=== PATIENT | male | born 1960 | race American Indian/Alaskan Native ===

== ENCOUNTER 2021-09-14 06:23 | Day surgery (SDC) | payer OTHER ==
[2021-09-08 11:12] LABS: Hematocrit 44.6 % (35.5-45.6); Hemoglobin 15.4 gm/dl (11.8-15.2); Mean Corpuscular HGB Conc 35 % (32-34); Mean Corpuscular Volume 89 fl (84-94); Red Cell Distribution Width 13.5 % (13.2-15.2)
[2021-09-08 11:28] LABS: Platelet Count 233 K/mm3 (140-440)
[2021-09-08 11:34] LABS: Alanine Aminotransferase 14 units/L (7-56); Albumin 4.7 g/dL (3.9-5); BUN/Creatinine Ratio 9; Blood Urea Nitrogen 9 mg/dL (9-20); Calcium 9.8 mg/dL (8.4-10.2); Hemolysis Index 7
[2021-09-14] MEDS ORDERED: BACTERIOSTATIC SODIUM CHLORIDE 0.9% 30 ML VIAL INFILTRATI ONE (06:51)
[2021-09-14] MEDS ORDERED: LACTATED RINGERS 1,000 ML IV SCH (07:00)
--- NOTE | 2021-09-14 07:45 | Anesthesia Consultation ---
Anesthesia Consult and Med Hx Date of service: 09/14/21 - Airway Anesthetic Teeth Evaluation: Good (some missing) ROM Head & Neck: Adequate Mental/Hyoid Distance: Adequate Mallampati Class: Class II Intubation Access Assessment: Probably Good - Pre-Operative Health Status ASA Pre-Surgery Classification: ASA3 Proposed Anesthetic Plan: General - Pulmonary Hx Smoking: Yes (1 PPD X 40 YRS) COPD: Yes (PRN INHALER) Hx Sleep Apnea: Yes (DX SLEEP APNEA WITH CPAP USE) - Cardiovascular System Hx Hypertension: Yes (X 11 YRS) Hx Heart Murmur: Yes (CAUSES NO PROBLEMS) - Central Nervous System Hx Back Pain: Yes (hip arthritis, uses cane) Hx Psychiatric Problems: Yes (PTSD) - Endocrine Hx Renal Disease: No (elevated PSA) Hx Non-Insulin Dependent Diabetes: Yes - Hematic Hx Anemia: No - Other Systems Hx Alcohol Use: Yes (HX ABUSE- DRY X 20 YRS) Hx Cancer: No
--- NOTE | 2021-09-14 07:45 | Anesthesia Day of Surgery ---
Anesthesia Day of Surgery - Day of Surgery Patient Examined: Yes Patient H&P Reviewed: Yes Patient is NPO: Yes
[2021-09-14] MEDS ORDERED: MIDAZOLAM 2 MG/2 ML INJ IV NR (08:00)
[2021-09-14] MEDS ORDERED: FAMOTIDINE 20 MG/2 ML INJ IV NR (08:00)
[2021-09-14] MEDS ORDERED: ceFAZolin/STERILE WATER 2 GM/20 ML SYRINGE IV NR (08:00)
[2021-09-14] MEDS ORDERED: propofoL 200 MG/20 ML VIAL IV ONE (08:39)
[2021-09-14] MEDS ORDERED: HYDROmorphone 1 MG/1 ML INJ ONE (08:39)
[2021-09-14] MEDS ORDERED: LIDOCAINE MPF (2%) 20 MG/1 ML VIAL 5 ML ONE (08:39)
[2021-09-14] MEDS ORDERED: ONDANSETRON 4 MG/2 ML INJ ONE (09:24)
[2021-09-14 11:00] VITALS: BP 128/79
--- NOTE | 2021-09-14 11:04 | Ultrasound Report ---
Transrectal Ultrasound HISTORY: ELEVATED PSA. TECHNIQUE: Grayscale and color imaging performed. COMPARISON: None IMPRESSION: Prostate volume is 48.5 mL. The prostate is heterogeneous in appearance. Please refer to operative note for complete details. Signer Name: Wilber Yarbrough MD Signed: 09/14/2021 10:58 AM Workstation Name: [id number]
--- NOTE | 2021-09-14 11:46 | Operative Report ---
DATE OF SURGERY: 09/14/2021 TIME OF PROCEDURE: At approximately 9:15 a.m. PREOPERATIVE DIAGNOSES: 1. Elevated PSA with acute rise. 2. Family history of prostate and breast cancer. POSTOPERATIVE DIAGNOSES: 1. Elevated PSA with acute rise. 2. Family history of prostate and breast cancer. OPERATIVE PROCEDURE: Transrectal ultrasound of the prostate with transrectal ultrasound-guided prostate needle biopsies. ATTENDING: Noam Rollins MD CHANNEL ACCOUNT MANAGER: None. ANESTHESIA: General. ESTIMATED BLOOD LOSS: 10 mL. DRAINS: None. COMPLICATIONS: None. SPECIMENS: Prostate needle biopsies. INDICATIONS FOR PROCEDURE: The patient is a 61-year-old man with a strong family history of prostate cancer and an acute rise in his PSA. He presents today for prostate needle biopsy. DESCRIPTION OF PROCEDURE IN DETAIL: After induction of suitable anesthesia and proper positioning and preparation in the dorsal lithotomy position, an ultrasound probe was placed per rectum. Ultrasound of the prostate was performed. The patient had transitional zone nodularity, especially on the right. His prostate volume was 48.5 grams. Using ultrasound guidance, sequential, sextant biopsies were performed in the usual fashion. The probe was removed at the completion of the procedure. The patient tolerated the procedure well. All specimens were adequate. The patient was then awakened from anesthesia and transported to the recovery room in stable condition. He tolerated the procedure well. He will return in approximately 7-10 days for pathology review. TID: [id number] RECEIPT: [id number] SAMMI/YECENIA
--- NOTE | 2021-09-14 14:20 | Post Anesthesia Evaluation ---
- Post Anesthesia Evaluation Patient Participated: Yes Airway Patent: Yes Stable Respiratory Function: Yes Nausea/Vomiting: No Temp > 96.8F: Yes Pain Manageable: Yes Adequeate Hydration: Yes Anesthesia Complications: No Block Receding Appropriately: Not Applicable Patient on Ventilator: No
== END 2021-09-14 11:40 | disposition home or self-care (01) ==
LOC: OR 06:23
PROVIDERS: ATTEND Urology
DX: R97.20 Elevated prostate specific antigen [PSA] (principal); E78.00 Pure hypercholesterolemia, unspecified; I10 Essential (primary) hypertension; J44.9 Chronic obstructive pulmonary disease, unspecified; G47.30 Sleep apnea, unspecified; E11.9 Type 2 diabetes mellitus without complications; F17.210 Nicotine dependence, cigarettes, uncomplicated; Z80.3 Family history of malignant neoplasm of breast; Z80.42 Family history of malignant neoplasm of prostate; Z20.822 Contact with and (suspected) exposure to COVID-19; Z79.899 Other long term (current) drug therapy; Z91.040 Latex allergy status; Z79.82 Long term (current) use of aspirin; Z79.84 Long term (current) use of oral hypoglycemic drugs; Z98.890 Other specified postprocedural states
CPT/HCPCS: 36415; 55700; 76872; 80053; 82962; 85027; 88305; J0690; J1170; J2250; J2405; J2704; J3490; J7120; U0003